=== PATIENT | female | born 1990 | race Caucasian/White ===

== ENCOUNTER 2020-09-20 12:49 | Outpatient (RCR) | payer OTHER, SELFPAY ==
[2020-09-20] MEDS: RHO(D) IMMUNE GLOBULIN 300 MCG SYRINGE IM (11:25)
== END 2020-09-20 12:50 | disposition home or self-care (01) ==
LOC: ANHOBOP 12:49
PROVIDERS: Visit Provider Student in an Organized Health Care Education/Training Program
DX: Z29.13 Encounter for prophylactic Rho(D) immune globulin (principal); O03.9 Complete or unspecified spontaneous abortion without complication; O36.0990 Maternal care for other rhesus isoimmunization, unspecified trimester, not applicable or unspecified; Z3A.00 Weeks of gestation of pregnancy not specified
CPT/HCPCS: 36415; 85461; 90384; 96372; J2790

== ENCOUNTER 2021-04-24 09:13 | Outpatient (RCR) | payer OTHER, BC, SELFPAY ==
[2021-04-24] MEDS: RHO(D) IMMUNE GLOBULIN 300 MCG/2 ML SYRINGE IM (17:26)
== END 2021-07-23 23:59 | disposition home or self-care (01) ==
LOC: ANHLAB 09:13
PROVIDERS: Visit Provider Student in an Organized Health Care Education/Training Program
DX: Z29.13 Encounter for prophylactic Rho(D) immune globulin (principal); O36.0190 Maternal care for anti-D [Rh] antibodies, unspecified trimester, not applicable or unspecified; Z3A.00 Weeks of gestation of pregnancy not specified
CPT/HCPCS: 36415; 85461; 90384; 96372; J2790

== ENCOUNTER 2021-07-15 23:49 | Observation (INO) | payer OTHER, BC, SELFPAY ==
[2021-07-16 00:30] VITALS: BMI 27.8
--- NOTE | 2021-07-16 03:04 | OBADM ---
This patient, Domitila Garber, admitted to the OB room Labor/Delivery/Recovery 105 for observation. Patient/family oriented to hospital policies and general routines including ID bracelet, bed and alarms, visiting hours, pain management, procedures, bathroom and other care routines, personal items, smoking policy, room service/diet, and visiting hours. Patient/Family are encouraged to report perceived risks to care and to ask questions if they do not understand what they are told or what they should do.
--- NOTE | 2021-07-16 07:40 | PM.OBTRLD ---
OB - Triage/Final Diagnosis Visit Information Date of evaluation: 07/16/21 Reason for evaluation: threatened labor Comments/Additional reasons for admission: I have assessed the risk for this patient, Domitila Kiana Garber, and determined that she would benefit from observation care.
== END 2021-07-16 02:49 | disposition home or self-care (01) ==
PROVIDERS: Admitting Provider Obstetrics & Gynecology; Visit Provider Obstetrics & Gynecology
DX: O47.1 False labor at or after 37 completed weeks of gestation (principal); Z3A.39 39 weeks gestation of pregnancy
CPT/HCPCS: G0378; G0379

== ENCOUNTER 2021-07-17 08:55 | Inpatient (IN) | payer OTHER, BC, SELFPAY ==
[2021-07-17] VITALS (181 sets, daily range): BP systolic 64–144; BP diastolic 39–110; PULSE 33–199; RESP 18–20; TEMP 36.4–37.9; O2SAT 81–100; BMI 27.8
--- NOTE | 2021-07-17 08:55 | LDADM ---
This patient, Domitila Garber, was admitted to Labor/Delivery/Recovery 107 on 07/17/21 at 08:55. Plans for labor, pain management and were discussed with patient. Patient/family oriented to hospital policies and general routines including ID bracelet, bed and alarms, visiting hours, pain management, procedures, bathroom and other care routines, personal items, smoking policy, room service/diet and guest tray routines, security routines, and visiting hours. Patient/Family are encouraged to report perceived risks to care and to ask questions if they do not understand what they are told or what they should do. See OBIX for further documentation.
[2021-07-17 10:19] LABS: Basophils Percent Auto 0.2 % (0.2-1.2); Eosinophils Percent Auto 0.3 % (0-4.4); Hematocrit 40.1 % (37.0-47.0); Hemoglobin 13.3 g/dL (12.0-15.0); Immature Granulocyte Absolute 0.08 K/mm3 (0.00-0.031); Immature Granulocyte Percent A 0.8 % (0-0.5); Lymphocytes Absolute Auto 1.14 K/mm3 (0.9-3.2); Lymphocytes Percent Auto 10.8 % (18.3-44.2); Mean Corpuscular HGB Conc 33.2 g/dl (32-36); Mean Corpuscular Hemoglobin 30.6 pg (26-34); Mean Corpuscular Volume 92.2 fl (80-100); Mean Platelet Volume 11.6 fl (7.4-10.4); Monocytes Absolute Auto 0.8 K/mm3 (0.1-0.6); Monocytes Percent Auto 7.7 % (2.6-8.5); Neutrophils Absolute Auto 8.4 K/mm3 (1.3-6.7); Neutrophils Percent Auto 80.2 % (45.5-73.1); Platelet Count Result 194 k/mm3 (150-375); Red Blood Count 4.35 M/mm3 (4.2-5.4); Red Cell Distribution Width 13.5 % (11.5-14.5); White Blood Count 10.5 K/mm3 (4.5-10.0)
--- NOTE | 2021-07-17 11:11 | PM.IMHP ---
H&P: HPI History of Present Illness Date/Time: 07/17/21 11:11 Chief Complaint: intrauterine at term Narrative: 31 yo at 39w6d who presents for elective IOL. Pt reports regular contractions since this past Wednesday. Pt states she is uncomfortable with her contractions and would like to be induced. She endorses good movement. She denies any leakage of fluid. She does reports increased bloody show. Review of Systems Cardiovascular: Cardiovascular: Denies chest pain, Denies leg edema, Denies palpitations, Denies dyspnea and Denies dyspnea on exertion Respiratory: Respiratory: Denies cough, Denies dyspnea and Denies dyspnea on exertion Gastrointestinal: Gastrointestinal: Denies abdominal pain, Denies constipation, Denies diarrhea, Denies nausea and Denies vomiting Genitourinary: Genitourinary: Denies hematuria, Denies urinary frequency, Denies dysuria, Denies pelvic pain, Denies urinary incontinence and Denies vaginal discharge Neurologic: Reports system reviewed and no additional complaints, except as documented Psychiatric: Psychiatric: Reports no additional psychiatric complaints Endocrine: Endocrine: Denies palpitations [facility] Family History Family History Other No pertinent family history Social History Social History Smoking status: Never smoker Substance use: never Spiritual care concerns: No Meds Home Medications and Allergies Home Medications Medication Instructions Recorded Confirmed Type prenat.vits,michelle,[id number] 1 tablet PO DAILY 06/26/21 07/16/21 History Allergies Allergy/AdvReac Type Severity Reaction Status Date / Time No Known Allergies Allergy Verified 06/26/21 13:32 Vital Signs Vital Signs - 24 hr 07/17/21 10:00 Pulse Rate 63 Blood Pressure 123/71 Exam Const: General: no acute distress Eyes: EOM: EOMs intact bilaterally Neck: Neck: supple Thyroid: thyroid normal Chest: Breast/axilla inspection: normal inspection of the breasts Breast/axilla palpation: normal palpation of the breasts, normal palpation of the axillae and no axillary lymphadenopathy Resp: Effort & Inspection: normal respiratory effort Auscultation: clear to auscultation bilaterally Cardio: Rate: regular rate Rhythm: regular rhythm GI: Inspection: non-distended and other (Gravid) GI Palp: Yes Soft to palpation, No Tenderness to palpation present (GI) and No Guarding due to palpation present (GI) : General: No bladder normal to palpation External Female Exam: normal external appearance OB/external & speculum: No vaginal bleeding Manual OB Exam: dilated 2 cm, effaced 75% and station -2 Skin: General skin exam: normal color and no rashes or lesions noted Neuro: Cognition (Neuro): normal cognition Speech: normal speech Extrem: General: normal to inspection and no edema Psych: Mental Status: mental status grossly normal Affect: normal affect H&P: Results Labs Labs: Short CBC 07/17/21 Range/Units 10:10 WBC 10.5 H (4.5-10.0) K/mm3 Hgb 13.3 (12.0-15.0) g/dL Hct 40.1 (37.0-47.0) % Plt Count 194 (150-375) k/mm3 Assessment and Plan Assessment and plan (1) Supervision of high risk , unspecified, third trimester: Code(s): O09.93 - Supervision of high risk , unspecified, third trimester Status: Acute Assessment and Plan: 31 yo at 39w6d Rh neg, will receive Rhogam PP GBS neg FHT cat 1 cvx /-2 will plan for pitocin augmentation continuous EFM
[2021-07-17] MEDS: LACTATED RINGERS 1,000 ML 125 ML IV CONT ×3 (11:45→20:49)
[2021-07-17] MEDS: OXYTOCIN 30 UNITS/NS 500 ML 30 UNITS/500 ML BAG IV CONT (11:46)
--- NOTE | 2021-07-17 13:23 | WPDANESEPPF ---
Anes - Initial Pre Proc Eval Procedure: labor epidural Date/Time: 07/17/21 13:23 Surgeon: Truman Santoro MD Pre Op Diagnosis: labor pain Pre Op Diagnosis: IOL Patient Data Age: 31 Gender: F Height: 1.68 m Weight: 78.1 kg Last Vital Signs Temp 36.8 C 07/17/21 12:32 Pulse 67 07/17/21 13:21 Resp 20 07/17/21 12:32 BP 114/68 07/17/21 13:21 Pulse Ox 100 07/17/21 13:19 Allergies Allergy/AdvReac Type Severity Reaction Status Date / Time No Known Allergies Allergy Verified 06/26/21 13:32 Home Medications Medication Instructions Recorded Confirmed Type prenat.vits,michelle,uel-[id number] 1 tablet PO DAILY 06/26/21 07/16/21 History Laboratory Tests 07/17/21 07/17/21 07/17/21 10:10 10:10 10:10 WBC 10.5 K/mm3 H K/mm3 (4.5-10.0) RBC 4.35 M/mm3 M/mm3 (4.2-5.4) Hgb 13.3 g/dL g/dL (12.0-15.0) Hct 40.1 % % (37.0-47.0) MCV 92.2 fl fl (80-100) MCH 30.6 pg pg (26-34) MCHC 33.2 g/dl g/dl (32-36) RDW 13.5 % % (11.5-14.5) Plt Count 194 k/mm3 k/mm3 (150-375) MPV 11.6 fl H fl (7.4-10.4) Immature Gran % (Auto) 0.8 % H % (0-0.5) Neut % (Auto) 80.2 % H % (45.5-73.1) Lymph % (Auto) 10.8 % L % (18.3-44.2) [place] % (Auto) 7.7 % % (2.6-8.5) Eos % (Auto) 0.3 % % (0-4.4) Baso % (Auto) 0.2 % % (0.2-1.2) Lymph # (Auto) 1.14 K/mm3 K/mm3 (0.9-3.2) [place] # (Auto) 0.8 K/mm3 H K/mm3 (0.1-0.6) Eos # (Auto) 0.0 K/mm3 K/mm3 (0-0.3) Baso # (Auto) 0.0 K/mm3 K/mm3 (0.0-0.1) Abs Immat Gran (auto) 0.08 K/mm3 H K/mm3 (0.00-0.031) Absolute Neuts (auto) 8.4 K/mm3 H K/mm3 (1.3-6.7) Absolute Nucleated RBC 0.0 K/mm3 K/mm3 (0.0-0.012) Nucleated RBC % 0.0 % % (0.0-0.2) RPR Pending Blood Type A Negative Antibody Screen Positive Antibody Identification Pending Antigen Identification Cancelled JOSIANE, IgG Interpret Not Performed JOSIANE, Poly Interpret Negative JOSIANE, Complement Interp Not Performed Patient hx anesthesia problems: none Family hx anesthesia problems: none Results Review: All pre-operative results and documents have been reviewed as part of the pre-operative evaluation. [facility] Family History Family History Other No pertinent family history Social History Social History Smoking status: Never smoker Substance use: never Spiritual care concerns: No Anes - Eval Final PreProcedure Day of Procedure 07/17/21 13:23 Patient weight: overweight ASA classification: II Anesthesia type and monitoring: regional epidural and standard monitoring Results Review: All pre-operative results and documents have been reviewed as part of the pre-operative evaluation. Informed Consent: The patient's anesthetic plan and its attendant risks and benefits were discussed with the patient/family/POA. Questions were solicited and answers provided to the satisfaction of the patient/family/POA.
[2021-07-17] MEDS: ONDANSETRON INJ 4 MG/2 ML VIAL IV PUSH (22:18)
[2021-07-18] VITALS (18 sets, daily range): BP systolic 83–134; BP diastolic 39–110; PULSE 64–102; RESP 18; TEMP 36.7–37.3; O2SAT 97–98
--- NOTE | 2021-07-18 00:48 | PM.OBPRVD ---
OB - Delivery Note Procedure Procedure: Patient pushed for a spontaneous vaginal delivery. The fetus was delivered atraumatically and placed on the maternal abdomen. The cord was clamped and cut after 1 minute of life. The cord was double clamped and cut and a segment of cord was collected for cord gases. Cord blood was collected for blood type and Coomb's testing. The placenta delivered spontaneously and was noted to be intact. The perineum was inspected and there was a 3rd degree perineal laceration. The laceration extended through the vaginal mucosa and perineal muscles to the external anal sphincter. The anal sphincter was not torn completely through. The external anal sphincter was then grasped with 2 Allis clamps (1 on either side) for traction. Using of series of 4 horizontal and vertical mattress sutures of 2-0 vicryl, the posterior, inferior, superior, and anterior aspects of the muscle were reapproximated to reinforce the anal sphincter. The remainder of the perinea laceration was repaired in the usual fashion. The apex was grasped and suture ligated with 3-0 vicryl. This was then closed in a running fashion to the introitus. The remainder of the laceration was closed in a standard fashion. A rectal exam was performed to ensure complete closure and no residual defects. She was instructed on this type of laceration, the importance of stool softeners and perineal care. The uterus was firm and good hemostasis was noted. The patient and fetus were stable in the delivery room. Intrapartal events: None Induction method: per pitocin protocol Delivery augmentation: rupture of membranes Delivery monitor: external FHT Route of delivery: Episiotomy description: None Laceration Description: Perineal - 3rd Degree Delivery repair: vicryl Specimen: No Quantitative Blood Loss (ml): 250 Anesthesia type: Epidural Disposition: floor () Complications: No immediate complications Baby Date of : 07/18/21 Time of : 00:17 Weeks of gestation at delivery: 40 Infant gender: Male Weight (pounds): 9 Weight (ounces): 10 presentation: vertex position: Right Occiput Anterior Placenta delivery description: Spontaneous cord vessel description: 3 Vessels score one minute: 8 score five minutes: 9
[2021-07-18] MEDS: OXYTOCIN 30 UNITS/NS 500 ML 30 UNITS/500 ML BAG 125 UNITS IV CONT (01:07)
[2021-07-18] MEDS: IBUPROFEN 600 MG TABLET PO ×3 (01:48→20:37)
--- NOTE | 2021-07-18 03:33 | OBPPTRN ---
Patient transferred to post room #282 via wheelchair. Support person present. Oriented to unit, room, information board, rooming in, admission packet and security measures. Patient verbalizes understanding.
[2021-07-18] MEDS: ACETAMINOPHEN 325 MG TABLET 650 MG PO (04:47)
[2021-07-18] MEDS: MULTIVIT/MIN/PREN/FOL AC/IRON TABLET 1 TAB PO (08:55)
[2021-07-18] MEDS: HYDROcodone/acetaminophen (*CRX) 5-325 MG TABLET 1 TAB PO ×2 (08:55→20:37)
[2021-07-18] MEDS: DOCUSATE SODIUM 100 MG CAPSULE PO ×2 (08:55→15:32)
--- NOTE | 2021-07-18 09:00 | PC.NURSE ---
Mother called out for assist with feeding. Mother reports infant has been eagerly feeding with minimal tenderness is able to freely thrust tongue past gum ridge and flange both lips. Skin is intact on both nipples, no redness and bruising noted. Reviewed feeding cues, frequencies, duration of feedings, feeding elimination flow sheet, and signs of adequate intake. Demonstrated stimulation techniques to wake infant for feeding. Assisted with infant to breast. Reviewed positioning/alignment in cross cradle, holding breast in ?U? hold and guided asymmetrical latch on. Reviewed rational for each. Infant able to latch correctly within a few attempts. nursed eagerly with steady draws and occasional swallowing noted, some pausing noted. Reviewed signs of a correct latch, effective nursing and suck swallow ratio. Suggested mother stimulate while feeding to increase stimulate, increase intake and to assist with maintaining deep latch. would slip to shallow latch causing tenderness. Demonstrated how to adjust latch more deeply while feeding if needed. Mother reports she can feel the difference in latch with no tenderness. Nipple care reviewed of lanolin after feedings, warm compresses as needed, gel pads provided and reviewed care and cleaning. Instructed mother to call out for RN assistance if she is unable to latch infant for feeding or she has discomfort with nursing. Instructed feeding should be initiated three hours from start of last feeding or if feeding cues are noted before. Mother voiced understanding of information shared.
[2021-07-18] MEDS: SENNA/DOCUSATE SODIUM TABLET 2 TAB PO (20:36)
--- NOTE | 2021-07-18 20:59 | PC.NURSE ---
Patient viewed the discharge video Mother & Baby Care, The First Two Weeks online. Patient was given the opportunity and encouraged to ask questions. Patient verbalized understanding of information shared and has been given the mother/baby guide for home reference.
[2021-07-19] MEDS: HYDROcodone/acetaminophen (*CRX) 5-325 MG TABLET 1 TAB PO (00:11)
[2021-07-19] MEDS: IBUPROFEN 600 MG TABLET PO ×2 (04:47→11:12)
[2021-07-19 04:59] LABS: Hematocrit 30.9 % (37.0-47.0)
--- NOTE | 2021-07-19 08:19 | PM.OBDSVD ---
DS: Admitting Diagnosis Discharge Date 07/19/21 Admitting Diagnosis intrauterine at term OB - DS: Summary OB Procedures : None OB Procedures Intrapartum: Spontaneous Vag Delivery OB Procedures: : None Status at Discharge Functional status at discharge: independent ambulation Overall status at discharge: patient is back to baseline Time Spent with Patient Time attestation: Total time spent providing and/or coordinating discharge services: Time spent: Less than 30 minutes Exam Const: General: comfortable and no acute distress Resp: Effort & Inspection: normal respiratory effort Auscultation: clear to auscultation bilaterally Cardio: Rate: regular rate GI: GI Palp: Yes Soft to palpation Auscultation: normal bowel sounds Other: Fundus firm below umbilicus Psych: Appearance: grossly normal Mental Status: mental status grossly normal Affect: normal affect DS: Data Data Completed and Pending Labs on day of discharge: Labs from last 24 hours 07/19/21 07/19/21 04:42 04:42 Hgb 10.0 L D Hct 30.9 L Blood Type A Negative Antibody Screen TNP Screen Negative Baby's Blood Type O pos Baby's JOSIANE Positive Doses of RhIg Required 1 Discharge Plan Discharge Discharging Clinician: Truman Santoro Patient Disposition: Home, Self-Care Activity: as tolerated and pelvic rest Diet: regular Patient Instructions: Antibiotic Form, Vaginal Delivery (DC) Stand Alone Forms: General Discharge Information Follow-up/Referrals: Truman Santoro MD [Physician] - 4 Weeks Discharge Medications: New hydrocodone-acetaminophen 5-325 mg tablet 1 tablet PO Q6H PRN (Reason: pain) Qty: 28 RF: 0 sennosides-docusate sodium [Senokot-S] 8.6-50 mg Tablet 2 tab-cap PO HS Qty: 60 RF: 0 polysaccharide iron complex 150 mg iron Capsule 150 mg PO BIDWM Qty: 60 RF: 0 acetaminophen [Mapap (acetaminophen)] 325 mg Tablet 650 mg PO Q6H PRN (Reason: Mild Pain (1-3) Or Headache) Qty: 30 RF: 0 ibuprofen 600 mg Tablet 600 mg PO Q6H PRN (Reason: Cramping) Qty: 30 RF: 0 Continued prenat.vits,michelle,[id number] Tablet 1 tablet PO DAILY RF: 0 Date of admission: 07/17/21 08:55 Primary Care Provider: PHYSICIAN,CIRCULATION ASSISTANT Admitting Provider: Truman Santoro Attending physician on admission: Truman Santoro Condition: Stable
[2021-07-19 09:50] VITALS: BP 115/60; PULSE 80; RESP 20; TEMP 36.9
[2021-07-19] MEDS: DOCUSATE SODIUM 100 MG CAPSULE PO (11:13)
[2021-07-19] MEDS: MULTIVIT/MIN/PREN/FOL AC/IRON TABLET 1 TAB PO (11:13)
[2021-07-19] MEDS: RHO(D) IMMUNE GLOBULIN 300 MCG/2 ML SYRINGE IM (11:13)
--- NOTE | 2021-07-19 13:06 | WPDANLDPN2 ---
Anes-Prog Note L&D Date/Time: 07/19/21 13:06 Comfortable throughout: labor and delivery Neuraxial method: epidural Epidural/Spinal procedure site: clean & non-tender Neuro status: Neuro function grossly intact. Cardiovascular status: normal Respiratory status: normal Airway patency: baseline Mental status: baseline Post-Op hydration status: normal Vital Signs: Last Vital Signs Temp 36.9 C 07/19/21 09:50 Pulse 80 07/19/21 09:50 Resp 20 07/19/21 09:50 BP 115/60 07/19/21 09:50 Pulse Ox 98 07/18/21 20:40 Pain score (VAS): 09/29 Post-procedural complaints: none Patient feedback: Patient satisfied with anesthetic care.
[2021-07-19 15:38] LABS: Rapid Plasma Reagin Non-Reactive (NonReactive)
[2021-07-21 08:54] VITALS: BP 133/66; PULSE 68; RESP 16; TEMP 37.2; O2SAT 99
== END 2021-07-19 12:35 | disposition home or self-care (01) | DRG 768 ==
LOC: ANHLDR 09:34 → ANHOB2 07-18 04:34
PROVIDERS: Admitting Provider Student in an Organized Health Care Education/Training Program; Visit Provider Student in an Organized Health Care Education/Training Program
DX: O70.20 Third degree perineal laceration during delivery, unspecified (principal); Z37.0 Single live birth; Z3A.40 40 weeks gestation of pregnancy
CPT/HCPCS: 36415; 85014; 85018; 85025; 85461; 86592; 86850; 86880; 86900; 86901; 86902; 90384; A9270; G0378; G0379; J2405; J2590; J2790; J7120

== ENCOUNTER 2021-07-17 08:55 | Outpatient (RCR) | payer OTHER, BC, SELFPAY | END 2021-10-15 23:59 | disposition home or self-care (01) | LOC: ANHOBOP 08:55 | PROVIDERS: Visit Provider Student in an Organized Health Care Education/Training Program | DX: O26.899 Other specified pregnancy related conditions, unspecified trimester (principal); Z3A.00 Weeks of gestation of pregnancy not specified | CPT/HCPCS: 99199 ==

== ENCOUNTER 2023-04-01 11:00 | Outpatient (RCR) | payer OTHER, BC, SELFPAY | END 2023-06-30 23:59 | disposition home or self-care (01) | LOC: ANHLAB 11:00 | PROVIDERS: Visit Provider Obstetrics & Gynecology | DX: Z29.13 Encounter for prophylactic Rho(D) immune globulin (principal); O36.0190 Maternal care for anti-D [Rh] antibodies, unspecified trimester, not applicable or unspecified; Z3A.00 Weeks of gestation of pregnancy not specified | CPT/HCPCS: 36415; 85461; 86850; 86900; 86901; 90384; J2790 ==

== ENCOUNTER 2023-06-28 04:35 | Inpatient (IN) | payer OTHER, BC, SELFPAY ==
[2023-06-28] VITALS (85 sets, daily range): BP systolic 89–152; BP diastolic 49–117; PULSE 27–110; RESP 16–18; TEMP 36.4–36.9; O2SAT 82–100
--- NOTE | 2023-06-28 05:07 | LDADM ---
This patient, Domitila Garber, was admitted to Labor/Delivery/Recovery 104 on 06/28/23 at 04:35. Plans for labor, pain management and were discussed with patient. Patient/family oriented to hospital policies and general routines including ID bracelet, bed and alarms, visiting hours, pain management, procedures, bathroom and other care routines, personal items, smoking policy, room service/diet and guest tray routines, security routines, and visiting hours. Patient/Family are encouraged to report perceived risks to care and to ask questions if they do not understand what they are told or what they should do. See OBIX for further documentation.
[2023-06-28 06:07] LABS: Basophils Percent Auto 0.4 % (0.2-1.2); Eosinophils Absolute Auto 0.1 K/mm3 (0-0.3); Eosinophils Percent Auto 1.3 % (0-4.4); Hematocrit 36.6 % (37.0-47.0); Hemoglobin 12.1 g/dL (12.0-15.0); Immature Granulocyte Percent A 1.1 % (0-0.5); Lymphocytes Absolute Auto 1.52 K/mm3 (0.9-3.2); Lymphocytes Percent Auto 16.8 % (18.3-44.2); Mean Corpuscular HGB Conc 33.1 g/dl (32-36); Mean Corpuscular Hemoglobin 30.3 pg (26-34); Mean Corpuscular Volume 91.7 fl (80-100); Mean Platelet Volume 11.6 fl (7.4-10.4); Monocytes Absolute Auto 0.8 K/mm3 (0.1-0.6); Monocytes Percent Auto 8.3 % (2.6-8.5); Neutrophils Absolute Auto 6.5 K/mm3 (1.3-6.7); Neutrophils Percent Auto 72.1 % (45.5-73.1); Platelet Count Result 183 k/mm3 (150-375); Red Blood Count 3.99 M/mm3 (4.2-5.4); Red Cell Distribution Width 13.3 % (11.5-14.5)
[2023-06-28] MEDS: LACTATED RINGERS 1,000 ML 125 ML IV CONT ×2 (06:30→12:08)
[2023-06-28] MEDS: OXYTOCIN 30 UNITS/NS 500 ML 30 UNITS/500 ML BAG IV CONT (06:30)
--- NOTE | 2023-06-28 06:44 | PM.IMHP ---
H&P: HPI History of Present Illness Date/Time: 06/28/23 06:44 Chief Complaint: Induction of labor at term Narrative: this is a 33-year-old 3 para 1 whose last menstrual period was 09/19/2022, EDC is 06/26/2023, confirmed by 7 week ultrasound presents at 42 7th weeks gestation for induction of labor. has been uncomplicated. She received RhoGAM at 28 weeks. She has negative group B strep PMFSH Family History Family History Other No pertinent family history Social History Social History Years smoked: 1 Smoking status: Former smoker Tobacco type: cigarettes Substance use: never Lack of Transportation: No Lack of Food: Never True Current Housing: I Have Housing Concerned About Future Housing: No Difficulty Paying Gas/Electric Bills: No Difficulty Paying for Meds: No Currently Unemployed: No Education: Bachelor's Degree Difficulty w/ Childcare or Family Care: No Spiritual care concerns: No Meds Home Medications and Allergies Home Medications Medication Instructions Recorded Confirmed Type prenat.vits,michelle,[id number]-[id number] 1 tablet PO DAILY 06/26/21 07/16/21 History acetaminophen 325 mg tablet (Mapap 650 mg PO Q6H PRN Mild Pain (1-3) 07/19/21 Rx (acetaminophen)) Or Headache #30 tabs hydrocodone 5 mg-acetaminophen 325 1 tablet PO Q6H PRN pain #28 tabs 07/19/21 Rx mg tablet ibuprofen 600 mg tablet 600 mg PO Q6H PRN Cramping #30 tabs 07/19/21 Rx polysaccharide iron complex 150 mg 150 mg PO BIDWM #60 caps 07/19/21 Rx iron capsule sennosides 8.6 mg-docusate sodium 2 tab-cap PO HS #60 tabs 07/19/21 Rx 50 mg tablet (Senokot-S) Allergies Allergy/AdvReac Type Severity Reaction Status Date / Time No Known Allergies Allergy Verified 05/28/23 14:31 Vital Signs Vital Signs - 24 hr 06/28/23 05:07 Oxygen Delivery Room Air Exam Const: General: cooperative, healthy appearing and comfortable Nutritional Appearance: average body habitus Orientation/consciousness: oriented to person, oriented to place and oriented to time HENMT: Head: normal to inspection Resp: Effort & Inspection: normal respiratory effort Cardio: Rate: regular rate Rhythm: regular rhythm Heart sounds: S1 normal heart sound present and S2 normal heart sound present GI: Inspection: normal to inspection ( fundus soft) : External Female Exam: normal external appearance Speculum Exam - Vagina: normal appearance of the vagina Speculum Exam - Cervix: normal appearance of the cervix ( cervix 2.5/50/1. Attempted arom. FHTs reassuring) H&P: Results Labs Labs: Short CBC 06/28/23 Range/Units 05:41 WBC 9.0 (4.5-10.0) K/mm3 Hgb 12.1 (12.0-15.0) g/dL Hct 36.6 L (37.0-47.0) % Plt Count 183 (150-375) k/mm3 Assessment and Plan Assessment and plan (1) Term : Code(s): Z34.90 - Encounter for supervision of normal , unspecified, unspecified trimester Status: Acute Plan medical induction of labor. Spontaneous vaginal delivery is expected. She has an epidural candidate if she chooses
[2023-06-28] MEDS: fentaNYL CITRATE INJ (*CRX) 100 MCG/2 ML VIAL IV PUSH (11:45)
--- NOTE | 2023-06-28 12:03 | WPDANESEPP ---
Anes - Eval Pre Procedure Procedure: labor epidural Date/Time: 06/28/23 12:03 Preop Diagnosis: labor pain Pre Op Diagnosis: IOL Patient Data Age: 33 Gender: F Height: Weight: 77.11 kg Last Vital Signs Temp 36.6 C 06/28/23 10:00 Pulse 53 L 06/28/23 12:01 Resp 18 06/28/23 10:00 BP 131/78 06/28/23 12:01 O2 Del Method Room Air 06/28/23 05:07 Allergies Allergy/AdvReac Type Severity Reaction Status Date / Time No Known Allergies Allergy Verified 05/28/23 14:31 Home Medications Medication Instructions Recorded Confirmed Type prenat.vits,michelle,[id number] 1 tablet PO DAILY 06/26/21 07/16/21 History acetaminophen 325 mg tablet (Mapap 650 mg PO Q6H PRN Mild Pain (1-3) 07/19/21 Rx (acetaminophen)) Or Headache #30 tabs hydrocodone 5 mg-acetaminophen 325 1 tablet PO Q6H PRN pain #28 tabs 07/19/21 Rx mg tablet ibuprofen 600 mg tablet 600 mg PO Q6H PRN Cramping #30 tabs 07/19/21 Rx polysaccharide iron complex 150 mg 150 mg PO BIDWM #60 caps 07/19/21 Rx iron capsule sennosides 8.6 mg-docusate sodium 2 tab-cap PO HS #60 tabs 07/19/21 Rx 50 mg tablet (Senokot-S) Laboratory Tests 06/28/23 06/28/23 05:41 05:42 WBC 9.0 K/mm3 (4.5-10.0) RBC 3.99 L M/mm3 (4.2-5.4) Hgb 12.1 g/dL (12.0-15.0) Hct 36.6 L % (37.0-47.0) MCV 91.7 fl (80-100) MCH 30.3 pg (26-34) MCHC 33.1 g/dl (32-36) RDW 13.3 % (11.5-14.5) Plt Count 183 k/mm3 (150-375) MPV 11.6 H fl (7.4-10.4) Immature Gran % (Auto) 1.1 H % (0-0.5) Neut % (Auto) 72.1 % (45.5-73.1) Lymph % (Auto) 16.8 L % (18.3-44.2) [place] % (Auto) 8.3 % (2.6-8.5) Eos % (Auto) 1.3 % (0-4.4) Baso % (Auto) 0.4 % (0.2-1.2) Lymph # (Auto) 1.52 K/mm3 (0.9-3.2) [place] # (Auto) 0.8 H K/mm3 (0.1-0.6) Eos # (Auto) 0.1 K/mm3 (0-0.3) Baso # (Auto) 0.0 K/mm3 (0.0-0.1) Abs Immat Gran (auto) 0.10 H K/mm3 (0.00-0.031) Absolute Neuts (auto) 6.5 K/mm3 (1.3-6.7) Absolute Nucleated RBC 0.0 K/mm3 (0.0-0.012) Nucleated RBC % 0.0 % (0.0-0.2) RPR Pending Blood Type A Negative Antibody Screen Positive Antibody Identification Passive Due to RH Imm Glob Antigen Identification Not Reportable JOSIANE, IgG Interpret Not Performed JOSIANE, Poly Interpret Negative JOSIANE, Complement Interp Not Performed Patient hx anesthesia problems: none Family hx anesthesia problems: none Results Review: All pre-operative results and documents have been reviewed as part of the pre-operative evaluation. [facility] Family History Family History Other No pertinent family history Social History Social History Years smoked: 1 Smoking status: Former smoker Tobacco type: cigarettes Substance use: never Lack of Transportation: No Lack of Food: Never True Current Housing: I Have Housing Concerned About Future Housing: No Difficulty Paying Gas/Electric Bills: No Difficulty Paying for Meds: No Currently Unemployed: No Education: Bachelor's Degree Difficulty w/ Childcare or Family Care: No Spiritual care concerns: No Exam Day of Procedure 06/28/23 12:03
--- NOTE | 2023-06-28 12:04 | PM.OBPNLAB ---
Pain Control Date/time seen: 06/28/23 12:04 Pain control: tolerating well Pelvic Exam Dilation (cm): 4
[2023-06-28 12:40] LABS: Rapid Plasma Reagin Non-Reactive (NonReactive)
--- NOTE | 2023-06-28 14:28 | PM.OBPRVD ---
OB - Delivery Note Procedure Delivery date: 06/28/23 Procedure: mil Induction method: AROM Delivery monitor: External FHT Route of delivery: Episiotomy description: None Laceration Description: Perineal - 2nd Degree Delivery repair: vicryl Specimen: No Quantitative Blood Loss (ml): 60 Anesthesia type: Epidural Disposition: Floor Baby Date of : 06/28/23 Time of : 14:17 Weeks of gestation at delivery: 39 gender: Female presentation: vertex position: Right Occiput Anterior Placenta delivery description: Spontaneous Cord Vessel Description: 3 Vessels and Delayed Cord Clamping score one minute: 9 score five minutes: 9
[2023-06-28] MEDS: OXYTOCIN 30 UNITS/NS 500 ML 30 UNITS/500 ML BAG 125 UNITS IV CONT (14:49)
[2023-06-28] MEDS: IBUPROFEN 600 MG TABLET PO ×2 (15:43→20:26)
[2023-06-28] MEDS: WITCH HAZEL 40 PADS 1 PAD TOPICAL (15:44)
[2023-06-28] MEDS: BENZOCAINE 20% AER SPR (*SP) 56 GM CAN 1 SPRAY TOPICAL (15:44)
--- NOTE | 2023-06-28 17:00 | PC.NURSE ---
Patient transferred to post room #285 via wheelchair. Support person present. Oriented to unit, room, information board, rooming in, admission packet and security measures. Patient verbalizes understanding.
[2023-06-29 00:26] VITALS: BP 112/56; PULSE 52; RESP 16; TEMP 36.7; O2SAT 97
[2023-06-29] MEDS: IBUPROFEN 600 MG TABLET PO (05:33)
[2023-06-29 06:11] LABS: Hematocrit 35.3 % (37.0-47.0); Hemoglobin 11.5 g/dL (12.0-15.0)
--- NOTE | 2023-06-29 06:26 | PM.DS ---
DS: Admitting Diagnosis Discharge Date 06/29/2023 Admitting Diagnosis term DS: Discharge Diagnosis Discharge Diagnosis (1) Term : Code(s): Z34.90 - Encounter for supervision of normal , unspecified, unspecified trimester Status: Acute (2) Normal vaginal delivery: Code(s): O80 - Encounter for full-term uncomplicated delivery Status: Acute DS: Summary Hospital Course Reason for hospitalization: patient was admitted on 06/28/2023 for induction of labor Hospital Course: the patient underwent successful spontaneous vaginal delivery in 06/28/2023. Her hospital course and. She was up, breast-feeding when the difficulty, eating day, ambulating, and generally without complaints. Time Spent with Patient Time attestation: Total time spent providing and/or coordinating discharge services: Exam Const: General: cooperative, healthy appearing and comfortable Nutritional Appearance: average body habitus Orientation/consciousness: oriented to person, oriented to place and oriented to time Resp: Effort & Inspection: normal respiratory effort Cardio: Rate: regular rate Rhythm: regular rhythm Heart sounds: S1 normal heart sound present and S2 normal heart sound present GI: Inspection: normal to inspection ( Fundus firm below the umbilicus) DS: Data Data Completed and Pending Labs on day of discharge: Labs from last 24 hours 06/29/23 06/28/23 05:39 05:42 Hgb 11.5 L Hct 35.3 L RPR Non-reactive Blood Type Pending A Negative Antibody Screen Pending Positive Antibody Identification Passive Due to RH Imm Glob Antigen Identification Not Reportable JOSIANE, IgG Interpret Not Performed JOSIANE, Poly Interpret Negative JOSIANE, Complement Interp Not Performed Screen Pending Baby's Blood Type O pos Baby's JOSIANE Positive Doses of RhIg Required Pending Discharge Plan Discharge Attending physician on discharge: Ion Angeles Discharging Clinician: Ion Angeles Patient Disposition: Home, Self-Care Activity: may shower and pelvic rest Diet: heart healthy Patient Instructions: Antibiotic Form Stand Alone Forms: General Discharge Information Follow-up/Referrals: Ion Angeles MD [Physician] - Discharge Medications: Continued prenat.vits,michelle,[id number] Tablet 1 tablet PO DAILY acetaminophen [Mapap (acetaminophen)] 325 mg Tablet 650 mg PO Q6H PRN (Reason: Mild Pain (1-3) Or Headache) Qty: 30 0RF sennosides-docusate sodium [Senokot-S] 8.6-50 mg Tablet 2 tab-cap PO HS Qty: 60 0RF polysaccharide iron complex 150 mg iron Capsule 150 mg PO BIDWM Qty: 60 0RF ibuprofen 600 mg Tablet 600 mg PO Q6H PRN (Reason: Cramping) Qty: 30 0RF hydrocodone-acetaminophen 5-325 mg tablet 1 tablet PO Q6H PRN (Reason: pain) Qty: 28 0RF Date of admission: 06/28/23 04:35 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
--- NOTE | 2023-06-29 06:29 | P.PNOB_ITS ---
OB - PN: Subj Subjective Date/time seen: 06/29/23 06:29 Patient comments: no complaints and pain well controlled baby status: doing well [place] feeding status: exclusively breast feeding OB - PN: Obj Data Labs 06/29/23 05:39 Labs: Laboratory Results - last 24 hr 06/28/23 06/29/23 05:42 05:39 Hgb 11.5 L Hct 35.3 L RPR Non-reactive Blood Type A Negative Antibody Screen Positive Antibody Identification Passive Due to RH Imm Glob Antigen Identification Not Reportable JOSIANE, IgG Interpret Not Performed JOSIANE, Poly Interpret Negative JOSIANE, Complement Interp Not Performed Baby's Blood Type O pos Baby's JOSIANE Positive OB - PN A/P Plan day: 1 Plan: routine care, discharge home and follow up 6 weeks Time Spent With Patient Time: Total time spent is greater than 50% in coordination of care (as documented) at patient's floor/unit and/or counseling patient: Time with patient: less than 15 minutes Exam Const: General: cooperative, healthy appearing and comfortable Nutritional Appearance: average body habitus Orientation/consciousness: oriented to pe rson, oriented to place and oriented to time Resp: Effort & Inspection: normal respiratory effort Cardio: Rate: regular rate Rhythm: regular rhythm Heart sounds: S1 normal heart sound present and S2 normal heart sound present GI: Inspection: normal to inspection ( fundus firm below the umbilicus)
[2023-06-29] MEDS: ACETAMINOPHEN 325 MG TABLET 650 MG PO (08:46)
[2023-06-29] MEDS: DOCUSATE SODIUM 100 MG CAPSULE PO (08:47)
[2023-06-29] MEDS: MULTIVIT/MIN/PREN/FOL AC/IRON TABLET 1 TAB PO (08:47)
[2023-06-29 09:05] VITALS: BP 135/82; PULSE 56; RESP 16; TEMP 37.3; O2SAT 98
--- NOTE | 2023-06-29 10:35 | WPDANLDPN2 ---
Anes-Prog Note L&D Date/Time: 06/29/23 10:35 Comfortable throughout: labor and delivery Neuraxial method: epidural Epidural/Spinal procedure site: clean & non-tender Neuro status: Neuro function grossly intact. Cardiovascular status: normal Respiratory status: normal Airway patency: baseline Mental status: baseline Post-Op hydration status: normal Vital Signs: Last Vital Signs Temp 99.2 F 06/29/23 09:05 Pulse 56 L 06/29/23 09:05 Resp 16 06/29/23 09:05 BP 135/82 06/29/23 09:05 Pulse Ox 98 06/29/23 09:05 O2 Del Method Room Air 06/28/23 20:10 Pain score (VAS): 0 I/O: Intake & Output 06/28/23 06/29/23 06/29/23 23:59 07:59 15:59 Output Total 75 Balance -75 Post-procedural complaints: none Patient feedback: Patient satisfied with anesthetic care.
[2023-06-29 12:26] VITALS: BP 132/56; PULSE 71; RESP 16; TEMP 37.2; O2SAT 99
[2023-06-29] MEDS: RHO(D) IMMUNE GLOBULIN 300 MCG/2 ML SYRINGE IM (13:26)
[2023-07-01 10:13] VITALS: BP 131/79; PULSE 54; RESP 18; TEMP 37; O2SAT 99
== END 2023-06-29 15:48 | disposition home or self-care (01) | DRG 807 ==
LOC: ANHLDR 04:45 → ANHOB2 17:18
PROVIDERS: Admitting Provider Obstetrics & Gynecology; Visit Provider Obstetrics & Gynecology
DX: O70.1 Second degree perineal laceration during delivery (principal); Z37.0 Single live birth; Z3A.40 40 weeks gestation of pregnancy
CPT/HCPCS: 36415; 85014; 85018; 85025; 85460; 85461; 86592; 86850; 86880; 86900; 86901; 86902; 90384; A9270; J2590; J2790; J2795; J3010; J7120

== ENCOUNTER 2023-07-10 10:52 | Emergency (ER) | payer OTHER, BC, SELFPAY ==
--- NOTE | ~2023-07-10 | US_ITS ---
US breast RT complete 07/10/2023 13:21 Indication: Mastitis. Evaluate for abscess. Procedure: High-resolution complete ultrasound of the left breast including all 4 quadrants in the [place] bare[place] location Comparison: No prior studies for comparison. Findings: There is a complex heterogeneous appearance throughout the subareolar location the right br east at 5:00, consistent with inflammatory phlegmonous change. No discrete walled off fluid collectio n to suggest abscess. The area of abnormality measures approximately 5.2 cm greatest dimension. Impression: 1: Large complex heterogeneous area of subareolar soft tissue in the right breast, consistent with in flammatory/phlegmonous change. No discrete abscess identified. Recommend follow-up ultrasound in 3-4 weeks following appropriate therapy to assess for resolution. BI-RADS CATEGORY 2 - BENIGN FINDINGS Reviewed, dictated and finalized at location A. Impression: 1: Large complex heterogeneous area of subareolar soft tissue in the right [address] st, consistent with inflammatory/phlegmonous change. No discrete abscess identi fied. Recommend follow-up ultrasound in 3-4 weeks following appropriate therapy to assess for resolution. BI-RADS CATEGORY 2 - BENIGN FINDINGS
[2023-07-10 11:04] VITALS: BP 140/86; PULSE 69; RESP 17; TEMP 36.7; O2SAT 97
--- NOTE | 2023-07-10 11:10 | ED.SKABFB ---
HPI - Skin/Abscess/Foreign Bdy General Chief complaint: Skin/Abscess/Foreign Body Stated complaint: breast infection Time Seen by Provider: 07/10/23 10:54 Source: patient Mode of arrival: ambulatory Limitations: no limitations History of Present Illness HPI narrative: This is a 33-year-old female that presents to the ER for right breast pain and swelling. Ongoing over the last week. Reports fevers, chills, and fatigue that started a week ago. She started to note swelling and redness to the right breast. She was started on amoxicillin by her OB. Reports she had been on this for 4 days without relief and redness and swelling. She was then changed to cephalexin. She continues to have no change in her breast symptoms. Although, she is no longer having any fevers. She is currently pumping and breast feeding. Related Data Home Medications Medication Instructions Recorded Confirmed prenat.vits,michelle,[id number] 1 tablet PO DAILY 06/26/21 07/16/21 Allergies Allergy/AdvReac Type Severity Reaction Status Date / Time No Known Allergies Allergy Verified 07/10/23 10:53 Review of Systems Review of Systems: CONSTITUTIONAL: Denies fever SKIN: Reports redness and swelling All systems reviewed & are unremarkable except as noted in HPI and below PMFSH Past Medical History Medical History (Updated 07/10/23 @ 14:29 by Maggie Barahona PA-C) No active medical problems Family History Family History Other No pertinent family history Social History Social History Years smoked: 1 Smoking status: Former smoker Tobacco type: cigarettes Substance use: never Lack of Transportation: No Lack of Food: Never True Current Housing: I Have Housing Concerned About Future Housing: No Difficulty Paying Gas/Electric Bills: No Difficulty Paying for Meds: No Currently Unemployed: No Education: Bachelor's Degree Difficulty w/ Childcare or Family Care: No Spiritual care concerns: No Exam Narrative: GENERAL: Well-appearing, well-nourished, and in no acute distress. HEAD: Normocephalic, atraumatic. EYES: EOMI. CHEST: No respiratory distress. HEART: Regular rate EXTREMITIES: Normal range of motion. No edema. SKIN: Warm, dry, no rash. NEURO: No focal deficits. Alert and oriented x3. PSYCH: Normal mood and affect BREAST: Right breast erythematous with induration, no fluctuance noted Course Course Emergency Course: Patient was updated on work-up and agrees with plan of care Consultations Consultation #1: Spoke with Dr. Abdulkadir Mack about patient and workup. Since there is not an abscess present on US, will change patient's antibiotic coverage orally. She is to follow-up in clinic next week Date: 07/10/23 Vital Signs Vital signs: Vital Signs Temperature 98.0 F 07/10/23 11:04 Pulse Rate 69 07/10/23 11:04 Respiratory Rate 17 07/10/23 11:04 Blood Pressure 140/86 07/10/23 11:04 Pulse Oximetry 97 07/10/23 11:04 Temperature 98.0 F 07/10/23 11:04 Pulse Rate 54 L 07/10/23 13:10 Respiratory Rate 16 07/10/23 13:10 Blood Pressure 138/88 07/10/23 13:10 Pulse Oximetry 100 07/10/23 13:10 MDM - Skin/Abscess/Foreign Bdy MDM Narrative Medical decision making narrative: Patient presents to the emergency department for mastitis. Patient has been treated with amoxicillin and Keflex without relief. She is afebrile and nontoxic-appearing. CBC with leukocytosis to 12. Her inflammatory markers are elevated. Breast ultrasound shows findings consistent with inflammation/phlegmonous change. No discrete abscess. Spoke with Dr. Abdulkadir Mack about patient and workup. Since there is not an abscess present on US, will change patient's antibiotic coverage orally. She is to follow-up in clinic next week. Patient was updated on work-up and agrees with plan of car
[2023-07-10] MEDS: HYDROcodone/acetaminophen (*CRX) 5-325 MG TABLET 1 TAB PO (11:14)
[2023-07-10 11:27] LABS: Basophils Absolute Auto 0.1 K/mm3 (0.0-0.1); Basophils Percent Auto 0.6 % (0.2-1.2); Eosinophils Absolute Auto 0.2 K/mm3 (0-0.3); Eosinophils Percent Auto 1.2 % (0-4.4); Hematocrit 42.3 % (37.0-47.0); Immature Granulocyte Absolute 0.08 K/mm3 (0.00-0.031); Immature Granulocyte Percent A 0.7 % (0-0.5); Lymphocytes Absolute Auto 1.65 K/mm3 (0.9-3.2); Lymphocytes Percent Auto 13.7 % (18.3-44.2); Mean Corpuscular HGB Conc 33.1 g/dl (32-36); Mean Corpuscular Volume 90.8 fl (80-100); Mean Platelet Volume 9.4 fl (7.4-10.4); Monocytes Absolute Auto 0.6 K/mm3 (0.1-0.6); Neutrophils Absolute Auto 9.5 K/mm3 (1.3-6.7); Neutrophils Percent Auto 78.8 % (45.5-73.1); Platelet Count Result 418 k/mm3 (150-375); Red Blood Count 4.66 M/mm3 (4.2-5.4); Red Cell Distribution Width 12.6 % (11.5-14.5)
[2023-07-10 11:41] LABS: Anion Gap 8 mmol/L (8-16); Blood Urea Nitrogen 15 mg/dL (7-17); CRP 7.1 mg/dL (<1.0); Calcium 9.8 mg/dL (8.4-10.2); Carbon Dioxide 25 mmol/L (22-30); Chloride 105 mmol/L (98-107); Estimated CRCL calculation 151 ml/min; Estimated Glomerular Filt Rate > 60; Glucose 98 mg/dL (65-110); Sodium 138 mmol/L (137-145)
[2023-07-10 12:06] LABS: Erythrocyte Sedimentation Rate 66 mm/hr (0-20)
[2023-07-10 13:10] VITALS: BP 138/88; PULSE 54; RESP 16; O2SAT 100
== END 2023-07-10 14:40 | disposition home or self-care (01) ==
PROVIDERS: Emergency Provider Physician Assistant
DX: O91.22 Nonpurulent mastitis associated with the puerperium (principal); Z87.891 Personal history of nicotine dependence
CPT/HCPCS: 36415; 76641; 80048; 85025; 85652; 86140; 99284; A9270